=== PATIENT | female | born 1985 | race African-American/Black ===

== ENCOUNTER 2018-12-03 18:28 | Emergency (ER) | payer MEDICAID ==
[~2018-12-03] VITALS: Ht 162.6 cm; Wt 89.0 kg
[2018-12-03] MEDS ORDERED: KETOROLAC 30MG/ML VIAL IV ONE (20:30)
[2018-12-03] MEDS ORDERED: MORPHINE SULFATE 4 MG/ML CPJ (NOT FOR IM USE) IV ONE (22:15)
[2018-12-03] MEDS ORDERED: ONDANSETRON HCL 4MG/2ML INJ IV ONE (22:15)
[2018-12-03 22:25] VITALS: BP 140/91
== END 2018-12-03 23:53 | disposition left against medical advice (07) ==
LOC: ER 18:28
DX: R51 Headache (principal); I10 Essential (primary) hypertension
CPT/HCPCS: 70450; 81025; 96374; 99284; J1885; Z7610

== ENCOUNTER 2021-04-03 09:46 | Emergency (ER) | payer MEDICAID ==
[~2021-04-03] VITALS: Ht 162.6 cm; Wt 77.0 kg
[2021-04-03] MEDS ORDERED: HYDROCODONE/ACETAMINOPHEN 5/325MG TABLET PO ONE (10:00)
[2021-04-03] MEDS ORDERED: IBUP-2030 MT (12:02)
[2021-04-03] MEDS ORDERED: TRAM50TA3 MT (12:02)
[2021-04-03 12:22] VITALS: BP 131/87
== END 2021-04-03 12:24 | disposition home or self-care (01) ==
LOC: ER 09:46
DX: S89.92XA Unspecified injury of left lower leg, initial encounter (principal); Z88.0 Allergy status to penicillin; X58.XXXA Exposure to other specified factors, initial encounter; Y93.01 Activity, walking, marching and hiking; Y92.89 Other specified places as the place of occurrence of the external cause; Y99.8 Other external cause status
CPT/HCPCS: 73562; 81025; 99283; L1830

== ENCOUNTER 2025-03-17 19:24 | Emergency (ER) | payer OTHER ==
[~2025-03-17] VITALS: Ht 167.6 cm; Wt 77.0 kg
[~2025-03-17 19:24] MED LIST: IBUP-2030 MT; KEPP500 MT; TRAM50TA3 MT
[2025-03-17 19:28] VITALS: O2SAT 100
[2025-03-17 19:49] VITALS: BP 122/90; PULSE 92; RESP 16; TEMP 36.8; O2SAT 100
[2025-03-17] MEDS: LEVETIRACETAM 1000MG PREMIX 100 ML IV ONE (19:50)
[2025-03-17] MEDS: SODIUM CHLORIDE 0.9% 1,000 ML IV ONE (19:54)
[2025-03-17] MEDS: LEVETIRACETAM 500MG TABLET PO SCH (20:13)
[2025-03-17] MEDS ORDERED: LEVETIRACETAM 100MG/ML ORAL SYR PO ONE (20:15)
== END 2025-03-17 20:19 | disposition left against medical advice (07) ==
LOC: ER 19:24 → CMPBEDREQ 03-18 07:17
DX: G40.909 Epilepsy, unspecified, not intractable, without status epilepticus (principal); I10 Essential (primary) hypertension; Z88.0 Allergy status to penicillin; Z88.1 Allergy status to other antibiotic agents
CPT/HCPCS: 93005; 96365; 99284; J1953; J7030; Z7610